=== PATIENT | male | born 1985 | race Caucasian/White ===

== ENCOUNTER 2016-09-05 21:17 | Emergency (ER) | payer OTHER ==
[~2016-09-05] VITALS: Ht 185.4 cm; Wt 179.2 kg
[2016-09-05] MEDS: HYDROCODONE/APAP 10-325 MG TABLET PO ONE (22:11)
[2016-09-05] MEDS: FUROSEMIDE 20 MG TABLET PO ONE (22:11)
--- NOTE | 2016-09-05 22:13 | NUR ---
Patient discharged to home in stable conditon. Written and verbal after care instructions given. Patient verbalizes understanding of instructions.
[2016-09-05] MEDS ORDERED: FUROSEMIDE 20 MG TABLET ONE (22:19)
[2016-09-05] MEDS ORDERED: HYDROCODONE/APAP 10-325 MG TABLET ONE (22:20)
== END 2016-09-05 22:15 | disposition home or self-care (01) ==
LOC: ER 21:25
DX: R60.9 Edema, unspecified (principal); F17.210 Nicotine dependence, cigarettes, uncomplicated; F10.10 Alcohol abuse, uncomplicated
CPT/HCPCS: A4663

== ENCOUNTER 2017-07-21 20:43 | Emergency (ER) | payer OTHER ==
[~2017-07-21] VITALS: Ht 185.4 cm; Wt 172.4 kg
[2017-07-21] MEDS ORDERED: KETOROLAC TROMETHAMINE 15 MG INJ IV ONE (22:00)
[2017-07-21] MEDS ORDERED: KETOROLAC TROMETHAMINE 15 MG INJ ONE (22:13)
[2017-07-21 22:18] LABS: BASOPHILS % (AUTO) 0.7 % (0.0-2.0); EOSINOPHILS # (AUTO) 0.1 K/uL (0.0-0.7); EOSINOPHILS % (AUTO) 0.7 % (0.0-7.0); HEMATOCRIT 39.6 % (36.7-47.1); HEMOGLOBIN 13.4 g/dL (12.5-16.3); LYMPHOCYTES # (AUTO) 1.2 K/uL (20.0-40.0); LYMPHOCYTES % (AUTO) 17.4 % (20.5-51.5); MEAN CORPUSCULAR HEMOGLOBIN 30.6 uug (23.8-33.4); MEAN CORPUSCULAR HGB CONC 34 g/dL (32.5-36.3); MEAN CORPUSCULAR VOLUME 90.1 fL (73.0-96.2); MONOCYTES # (AUTO) 0.6 K/uL (2.0-10.0); MONOCYTES % (AUTO) 7.9 % (0.0-11.0); NEUTROPHILS # (AUTO) 5.2 K/uL (1.8-8.9); NEUTROPHILS % (AUTO) 73.3 % (38.5-71.5); PLATELET COUNT (AUTO) 213 K/uL (152-348); WHITE BLOOD COUNT (AUTO) 7.1 K/uL (3.6-10.2)
[2017-07-21 22:21] LABS: *BILIRUBIN,URIN NEGATIVE (NEGATIVE); *BLOOD, URINE NEGATIVE (NEGATIVE); *COLOR,URINE YELLOW (YELLOW); *KETONES,URINE NEGATIVE (NEGATIVE); *PROTEIN,URINE NEGATIVE (NEGATIVE); *UROBILINOGEN,URINE 0.2 E.U./dl (NORMAL); LEUKOCYTE ESTERASE ,URINE 1+ (NEGATIVE); NITRITE, URINE NEGATIVE (NEGATIVE); UGLUCOSE NEGATIVE (NEGATIVE)
[2017-07-21 22:28] LABS: *CLARITY,URINE SLIGHTLY HAZY (CLEAR)
[2017-07-21 22:30] LABS: RBC,URINE 0-3 /HPF (0-3); SQUAMOUS EPITHELIAL CELL,UR FEW /HPF (NONE SEEN)
[2017-07-21 22:34] LABS: BILIRUBIN,DIRECT 0.1 mg/dL (0.0-0.2); BILIRUBIN,TOTAL 0.3 mg/dL (0.2-1.0); TOTAL PROTEIN, SERUM 7.5 g/dL (6.4-8.2)
[2017-07-21 22:41] LABS: BACTERIA,URINE RARE /HPF (NONE SEEN)
[2017-07-21] MEDS ORDERED: IV NORMAL SALINE 1000 ML BAG IV ONE (23:15)
--- NOTE | 2017-07-21 23:20 | NUR ---
IV removed ON RIGHT HAND PATIENT RESQUESTED. Catheter intact and site benign. Pressure and 4x4 gauze applied to site. No bleeding noted.
[2017-07-21] MEDS ORDERED: SWABABLE VALVE TRANSFER SET EA MC ONE (23:28)
[2017-07-21] MEDS ORDERED: IOHEXOL 350 100 ML INFUS..BTL ONE (23:29)
[2017-07-21] MEDS ORDERED: IV NORMAL SALINE 100 ML ONE (23:29)
--- NOTE | 2017-07-21 23:55 | NUR ---
PATIENT RETURNED FROM CT SCAN.
--- NOTE | 2017-07-22 01:25 | NUR ---
DR. GARCÍA AT BEDSIDE FOR REASSESSMENT
[2017-07-22] MEDS ORDERED: DEXAMETHASONE SOD PHOSPHATE 10 MG INJ ONE (01:51)
--- NOTE | 2017-07-22 01:55 | NUR ---
Patient discharged to home in stable conditon. Written and verbal after care instructions given. Patient verbalizes understanding of instructions. Pt left ER and walks in steady gait. Pt has no complaints at this time.
[2017-07-22 01:59] VITALS: BP 116/67
[2017-07-22] MEDS ORDERED: DEXAMETHASONE SOD PHOSPHATE 4 MG INJ IV ONE (02:00)
[2017-08-06] MEDS ORDERED: HYDR-3326 PO (11:58)
[2017-08-06] MEDS ORDERED: SIMV20TA2 PO (11:58)
[2017-08-06] MEDS ORDERED: LEVO750T21 PO (11:58)
[2017-08-06] MEDS ORDERED: ALBU8.5H8 INH (11:58)
== END 2017-07-22 02:04 | disposition home or self-care (01) ==
LOC: ER 20:45
DX: R09.1 Pleurisy (principal); F17.210 Nicotine dependence, cigarettes, uncomplicated
CPT/HCPCS: 36415; 71045; 71275; 74176; 80048; 80076; 81001; 83690; 84484; 85025; 85379; 85730; 93005; 96361; 96374; 96375; 99285; A4663; J1100; J1885; J3490; J7030; Q9967; 70030-TC

== ENCOUNTER 2017-08-05 15:43 | Inpatient (IN) | payer OTHER ==
[~2017-08-05] VITALS: Ht 185.4 cm; Wt 175.1 kg
[2017-08-05] MEDS ORDERED: IBUP-1957 PO (16:21)
--- NOTE | 2017-08-05 16:34 | NUR ---
PT IS IN ROOM # 1A. DR CHAVES EVALUATED THE PT.
[2017-08-05] MEDS ORDERED: DEXAMETHASONE SOD PHOSPHATE 4 MG INJ IM ONE (17:06)
[2017-08-05] MEDS ORDERED: DEXAMETHASONE SOD PHOSPHATE 10 MG INJ ONE (17:24)
[2017-08-05 17:29] LABS: BASOPHILS % (AUTO) 0.6 % (0.0-2.0); EOSINOPHILS # (AUTO) 0.1 K/uL (0.0-0.7); EOSINOPHILS % (AUTO) 1.2 % (0.0-7.0); HEMATOCRIT 36.7 % (36.7-47.1); HEMOGLOBIN 12.7 g/dL (12.5-16.3); LYMPHOCYTES # (AUTO) 0.9 K/uL (20.0-40.0); LYMPHOCYTES % (AUTO) 11.4 % (20.5-51.5); MEAN CORPUSCULAR HEMOGLOBIN 30.9 uug (23.8-33.4); MEAN CORPUSCULAR HGB CONC 35 g/dL (32.5-36.3); MEAN CORPUSCULAR VOLUME 89.5 fL (73.0-96.2); MONOCYTES # (AUTO) 0.7 K/uL (2.0-10.0); MONOCYTES % (AUTO) 8.4 % (0.0-11.0); NEUTROPHILS # (AUTO) 6.1 K/uL (1.8-8.9); NEUTROPHILS % (AUTO) 78.4 % (38.5-71.5); PLATELET COUNT (AUTO) 181 K/uL (152-348); WHITE BLOOD COUNT (AUTO) 7.8 K/uL (3.6-10.2)
[2017-08-05 17:42] LABS: BILIRUBIN,TOTAL 0.4 mg/dL (0.2-1.0); CREATININE 0.7 mg/dL (0.6-1.3); POTASSIUM 3.9 mmol/L (3.5-5.1)
[2017-08-05] MEDS ORDERED: ALBUTEROL SULFATE 2.5 MG/3 ML NEBU NEB ONE (18:34)
[2017-08-05] MEDS ORDERED: CEFTRIAXONE 1 G in IV DEXTROSE 5% 50 ML IV ONE (18:45)
[2017-08-05] MEDS ORDERED: IPRATROPIUM BROMIDE 0.5 MG/2.5 ML NEBU NEB ONE (18:45)
[2017-08-05 18:57] LABS: ABG BASE EXCESS 0.8 mmol/L; ABG HCO3 25.3 mmol/L; ABG PCO2 40.3 mmHg (35.0-45.0); ABG PH 7.416 (7.350-7.450); ABG PO2 69.7 mmHg (75.0-100.0); ABG SITE LEFT RADIAL; ABG TOTAL HEMOGLOBIN 13.8 G/dL (13.5-18.0); COHb 6.8 % (0.5-1.5); MetHb 0.1 % (0.0-1.5); VENT MODE ROOM AIR
[2017-08-05] MEDS ORDERED: CEFTRIAXONE 1 G VIAL ONE (19:05)
[2017-08-05] MEDS ORDERED: IPRATROPIUM BROMIDE 0.5 MG/2.5 ML NEBU ONE (19:08)
[2017-08-05] MEDS ORDERED: ALBUTEROL SULFATE 2.5 MG/3 ML NEBU ONE (19:08)
--- NOTE | 2017-08-05 19:08 | NUR ---
REPORT GIVEN TO PRODUCTION MATERIAL HANDLERPROGRAM LEAD.
--- NOTE | 2017-08-05 19:18 | NUR ---
ASSUMED CARE OF PATIENT FROM HODAN Headley RN. PATIENT REMAINS IN BED, NO ACUTE DISTRESS NOTED. RESPIRATIONS EVEN AND UNLABORED. NO CARDIOVASCULAR DISTRESS NOTED. VSS. BED IN LOWEST POSITION, SIDERAILS UP. CALL LIGHT IS WIHTIN REACH. BREATING TX ONGOING, RT AT BEDSIDE.
--- NOTE | 2017-08-05 20:22 | NUR ---
Pt. admitted to Telemetry , under care of Dr. Patrick Jean-Baptiste. Dx: PNA. Report given to Jodee TORRES on Telemetry. Belongs List completed
--- NOTE | 2017-08-05 20:30 | NUR ---
Admitted a 32 years old male with diagnosis of Pneumonia. Patient AAOx4. In no acute distress. Appears slightly SOB. Applied O2 at 2LPM via NC and effective. Routine admission care done. Plan of care initiated. Safety measure initiated and call huggins within reach.
[2017-08-05 20:55] VITALS: BP 126/47
[2017-08-05] MEDS ORDERED: ALBUTEROL SULFATE 2.5 MG/3 ML NEBU NEB PRN (21:30)
[2017-08-05] MEDS ORDERED: HYDROCODONE/APAP 5-325MG TABLET PO PRN (21:30)
[2017-08-05] MEDS ORDERED: LEVOFLOXACIN 750MG/D5W 750 MG in PREMIXED 1 EACH IV SCH (21:30)
[2017-08-05] MEDS ORDERED: TEMAZEPAM 15 MG CAPSULE PO PRN (21:30)
[2017-08-05] MEDS ORDERED: MAGNESIUM HYDROXIDE 30 ML LIQUID UDC PO PRN (21:30)
[2017-08-05] MEDS ORDERED: ACETAMINOPHEN 325 MG TABLET PO PRN (21:30)
[2017-08-05] MEDS ORDERED: ONDANSETRON 4 MG/2 ML VIAL IV PRN (21:30)
--- NOTE | 2017-08-05 21:45 | NUR ---
Telephone call to Doctor Melonie Jean-Baptiste Informed of pt HR going down to 43-45 from 60's. Per pt he has history of sleep apnea. Has CIPAP at home but has not use it for 2 years now. Pt is willing to try CIPAP again. Doctor Patrick with order for CIPAPfor pt comfort. RT made aware.
[2017-08-05] MEDS ORDERED: LEVOFLOXACIN 750MG/D5W 150 ML IV ONE (22:09)
--- NOTE | 2017-08-05 23:50 | NUR ---
Pt placed on CPAP per MD order, settings are CPAP of 8, FiO2 30%. Pt is awake and alert. When asked about CPAP and mask fit, pt states that it feels comfortable. Pt is tolerating CPAP well at this time. Protecta-gel placed to protect skin from mask. No signs of respiratory distress noted at this time. SpO2 is 97%. BRIAN Ellsworth notified and is aware pt is now on CPAP. Will continue to monitor pt throughout shift.
[2017-08-06] VITALS: BP 123/56
[2017-08-06 04:34] VITALS: BP 123/61
[2017-08-06 06:32] LABS: BASOPHILS % (AUTO) 0.1 % (0.0-2.0); HEMATOCRIT 37.7 % (36.7-47.1); HEMOGLOBIN 13.2 g/dL (12.5-16.3); LYMPHOCYTES # (AUTO) 0.5 K/uL (20.0-40.0); LYMPHOCYTES % (AUTO) 5.7 % (20.5-51.5); MEAN CORPUSCULAR HEMOGLOBIN 31.3 uug (23.8-33.4); MEAN CORPUSCULAR HGB CONC 35 g/dL (32.5-36.3); MEAN CORPUSCULAR VOLUME 89.2 fL (73.0-96.2); MONOCYTES # (AUTO) 0.4 K/uL (2.0-10.0); MONOCYTES % (AUTO) 4.8 % (0.0-11.0); NEUTROPHILS # (AUTO) 7.9 K/uL (1.8-8.9); NEUTROPHILS % (AUTO) 89.4 % (38.5-71.5); PLATELET COUNT (AUTO) 182 K/uL (152-348); RED BLOOD CELL COUNT(AUTO) 4.22 MIL/uL (4.06-5.63); WHITE BLOOD COUNT (AUTO) 8.9 K/uL (3.6-10.2)
--- NOTE | 2017-08-06 06:36 | NUR ---
AAOx4. Denies any further pain or SOB. On O2 at 2LPM via NC. O2 sat at 96%. Tolerated CIPAP last night. IV site on right AC intact and patent. No adverse reaction noted from ABX. SR on tele at 63/min. Decrease coughing from last night, now able to expectorate yellow tinged phlegm. Safety measure maintained and call huggins within reach.
[2017-08-06] MEDS ORDERED: PANTOPRAZOLE SODIUM 40 MG TABLET.DR PO SCH (07:00)
[2017-08-06] MEDS ORDERED: LEVOFLOXACIN 750MG/D5W 750 MG in PREMIXED 1 EACH IV SCH ×2 (07:07→21:00)
[2017-08-06 08:29] LABS: THYROID STIMULATING HORMONE 1.377 mIU/mL (0.358-3.740)
[2017-08-06] MEDS ORDERED: NICOTINE 21 MG/24HR PATCH TD SCH (09:00)
[2017-08-06 09:04] LABS: BILIRUBIN,TOTAL 0.3 mg/dL (0.2-1.0); CREATININE 0.9 mg/dL (0.6-1.3); MAGNESIUM 2.2 mg/dL (1.8-2.4); PHOSPHOROUS 3.6 mg/dL (2.5-4.9); POTASSIUM 4.2 mmol/L (3.5-5.1); TOTAL PROTEIN, SERUM 7.5 g/dL (6.4-8.2)
--- NOTE | 2017-08-06 10:00 | NUR ---
Patient anxious, wanted to leave hospital by noon. Patient removed his gown and dressed with his personal clothing. Discussed with patient regarding leaving AMA, risks/benefits, patient verbalized understanding but insisted on leaving, wanting to speak with MD. MD notified.
[2017-08-06 11:10] VITALS: BP 125/60
[2017-08-06] MEDS ORDERED: HYDR-3326 PO (11:58)
[2017-08-06] MEDS ORDERED: SIMV20TA2 PO (11:58)
[2017-08-06] MEDS ORDERED: LEVO750T21 PO (11:58)
[2017-08-06] MEDS ORDERED: ALBU8.5H8 INH (11:58)
--- NOTE | 2017-08-06 12:15 | NUR ---
Patient discharged to home. Discharge instructions/teachings/prescription provided, pt verbalized understanding. Pt seen by pharmacy. IV access and ID band removed. VS stable, afebrile. Patient is still SOB upon exertion, MD aware.
--- NOTE | 2017-08-06 12:30 | NUR ---
Patient left the unit ambulatory, refused to use wheelchair. Patient stated he will call [employer] [facility] for transportation when he gets down at the hospital lobby. Patient is alert, in no distress. Belongings accounted and signed for, copy of prescription provided.
[2017-08-06] MEDS ORDERED: DOCUSATE SODIUM 250 MG CAPSULE PO SCH (21:00)
== END 2017-08-06 12:30 | disposition home or self-care (01) | DRG 139 ==
LOC: ER 15:44 → TELE 20:00
PROVIDERS: ADMIT Internal Medicine; ATTEND Internal Medicine
PROC: 5A09357 Assistance with Respiratory Ventilation, Less than 24 Consecutive Hours, Continuous Positive Airway Pressure (ICD-10-PCS; principal; 2017-08-05)
DX: J18.9 Pneumonia, unspecified organism (principal); Z68.43 Body mass index [BMI] 50.0-59.9, adult; E66.01 Morbid (severe) obesity due to excess calories; G47.33 Obstructive sleep apnea (adult) (pediatric); E78.5 Hyperlipidemia, unspecified; F17.210 Nicotine dependence, cigarettes, uncomplicated
CPT/HCPCS: 36415; 36600; 70030-TC; 71045; 83735; 84100; 84443; 85025; 87040; A4663; J0696; J1100; J1956; J3490; J3590; J7050